=== PATIENT | male | born 1965 | race Caucasian/White ===

== ENCOUNTER 2022-04-27 07:19 | Outpatient (CLI) | payer OTHER, SELFPAY ==
--- NOTE | 2022-04-27 07:15 | TELERAD_ITS ---
[facility] [address] [facility] [address] Phone:?[phone] Fax:?[phone] Referring Physician Information: Sundeep Munoz M.D. [address] [facility] [address] Phone:?[phone] Fax:?[phone] Patient:?Parish Renee D.O.B:?1965 Sex:?Male Phone:?[phone] [facility] MRN:?[id number] Exam Date:?04/27/2022 ? EXAM: MR LUMBAR SPINE WITHOUT CONTRAST 1.5T CLINICAL INFORMATION: Lumbar radiculopathy for 2 months. TECHNICAL INFORMATION: T1, T2 and STIR sagittal sections through the lumbar spine with T1 and T2 FSE stacked axial and angled axial sections. COMPARISON IMAGES: No comparisons. INTERPRETATION:?Segmentation and Alignment: Lordotic alignment of five lumbar- type vertebrae. Sacrum and Sacroiliac joints:?Mild hypertrophic changes are seen on the anterior margins of the superior sacroiliac joints with bridging bone on the left. L5-S1: Normal intervertebral disc and facet joints. No stenosis or impingement. L4-5: Moderate disc degeneration with dorsal bulging and mild narrowing of the subarticular recesses. Mild right facet arthrosis. Neural foramina patent. L3-4: Moderate disc degeneration with a moderate-sized 6-7 mm caudally extruded left posterolateral disc herniation narrowing the subarticular recess and impinging on the traversing left L4 nerve root seen best on T1 axial images 29 & 30 and T2 sagittal image 11. Normal facet joints and patent neural foramina. L2-3: Moderate disc degeneration with a high signal intensity right lateral annular fissure/bulge, mild right facet arthropathy and no stenosis or impingement. L1-2 and T12-L1: Normal intervertebral disc and facet joints. No stenosis or impingement. Conus: The tip of the conus medullaris is visualized at T12. No intradural mass and no arachnoidal adhesions. Osseous and paraspinous structures: Sagittal STIR images show a small benign intraosseous hemangioma within the posterior elements on the left at L5. No fracture or avulsion. No destructive bone lesion and no paraspinous mass. CONCLUSION: 1. Moderate-sized 6-7 mm caudally extruded left posterolateral disc herniation at L3-4 with left L4 neural impingement. 2. L4-5, L3-4 and L2-3 disc degeneration. 3. No intradural abnormality, and no neoplasm, fracture or infection. Electronically signed on 04/27/2022 1:46:00 PM by Jean Claude Rodríguez M.D.
== END 2022-04-27 07:20 | disposition home or self-care (01) ==
LOC: MRI 07:22
PROVIDERS: PCP Family Medicine; Visit Provider Family Medicine
DX: M54.16 Radiculopathy, lumbar region (principal); M51.26 Other intervertebral disc displacement, lumbar region; M51.36 Other intervertebral disc degeneration, lumbar region
CPT/HCPCS: 72148

== ENCOUNTER 2023-10-08 12:24 | Outpatient (CLI) | payer OTHER, SELFPAY | END 2023-10-08 12:25 | disposition home or self-care (01) | PROVIDERS: PCP Family Medicine; Visit Provider Family Medicine | DX: Z01.818 Encounter for other preprocedural examination (principal); E78.2 Mixed hyperlipidemia; Z12.5 Encounter for screening for malignant neoplasm of prostate | CPT/HCPCS: 80048; 80061; 84153; 85025 ==

== ENCOUNTER 2023-10-15 10:30 | Outpatient (CLI) | payer OTHER, SELFPAY ==
--- NOTE | 2023-10-15 11:24 | W.ANESCHARGE ---
Anesthesia Charges Start Date/Time Anesthesia Start Date: 10/15/23 Anesthesia Start Time: 10:54 Stop Date/Time Anesthesia Stop Date: 10/15/23 Anesthesia Stop Time: 11:20
== END 2023-10-15 10:31 | disposition home or self-care (01) ==
LOC: OP CLINIC 10:31
PROVIDERS: PCP Family Medicine; Visit Provider Internal Medicine
DX: Z12.11 Encounter for screening for malignant neoplasm of colon (principal); K63.5 Polyp of colon; K57.30 Diverticulosis of large intestine without perforation or abscess without bleeding
CPT/HCPCS: 00811; 45380; 88305; J2704

== ENCOUNTER 2025-01-12 13:38 | Outpatient (CLI) | payer OTHER, SELFPAY ==
--- NOTE | 2025-01-12 13:45 | CRLHL7_ITS ---
For Patients: As a result of the Century Cures Act, medical imaging exams and procedure reports are released immediately into your electronic medical record. You may view this report before your referring provider. If you have questions, please contact your health care provider. EXAM: MRI OF THE LEFT SHOULDER, WITHOUT CONTRAST CLINICAL INDICATION: Shoulder pain. PRIOR SURGERY: None reported. COMPARISON PLAIN FILMS: 17 November 2024. COMPARISON CROSS-SECTIONAL IMAGING STUDIES: None available at time of interpretation. TECHNICAL: Axial, sagittal oblique and coronal oblique T1, PD, PD FS and T2-weighted images. FINDINGS: GLENOHUMERAL JOINT: Effusion/Cyst: Moderately large effusion. Some strandy synovitis. No erosion. No paralabral or periarticular cyst or ganglion. Humeral Head Articular Cartilage: Diffuse high-grade 2 to grade 3 thinning. No secondary degenerative finding. Glenoid Articular Cartilage: Mildly heterogeneous signal and shallow grade 2 thinning. No secondary degenerative finding. Loose Bodies: No appreciable loose bodies. Capsule: No convincing evidence of adhesive capsulitis or capsular injury. OSSEOUS STRUCTURES: No fracture, marrow edema or marrow replacement process. CORACOACROMIAL ARCH: Acromial Morphology: Gracile acromion from prior acromioplasty. No abnormal lateral or anterior downward sloping of the acromion. No os acromiale. No significant subacromial spur. Acromiohumeral Interval: The acromiohumeral interval is adequately patent. At its narrowest, the interval measures 8 mm. No abnormal thickening of the coracoacromial ligament. Coracohumeral Interval: The coracohumeral interval is normal. At its narrowest, the coracohumeral interval measures greater than 10 mm. Coracoid index is 17 19 mm. ACROMIOCLAVICULAR JOINT REGION: AC Joint: Widened from surgical decompression. Ligaments: The coracoclavicular ligaments are intact. BURSAE: Subacromial-Subdeltoid: No abnormal bursal edema, thickening or bursal fluid. Subcoracoid: No abnormal bursal edema, thickening or bursal fluid. ROTATOR CUFF TENDONS AND MUSCLES AND DELTOID: Supraspinatus: Intermediate signal distal tendon and foot plate with some shallow articular fraying no high-grade tear. No atrophy or edema in the muscle. Infraspinatus: Hazy intermediate signal tendinosis mildly expands distal tendon. Shallow articular 5 millimeter tear at the anterior distal tendon just short of the footplate. No atrophy or edema in the muscle. Teres Minor: Intact tendon. Moderate fatty atrophy of the muscle. Subscapularis: Partial tearing of the superior insertion and prominent tendinosis degrades the distal tendon. No muscle atrophy or edema. Deltoid: No muscle atrophy or edema. BICEPS TENDON, LONG HEAD: The long head of the biceps tendon is appropriately positioned within the bicipital groove without tendon subluxation or dislocation. The biceps lesa mechanism is intact. The biceps anchor appears grossly intact. There is no significant tendinosis or tendon tearing. Fluid and synovitis in the moderately distended tendon sheath. GLENOID LABRUM: Indistinct blunted superior labrum with some patchy mucoid change and degenerative tearing. Posterior and inferior labrum are normal. Volume loss and marginal tearing blunts the anterior labrum without displacement. OTHER FINDINGS: There is no abnormality within the suprascapular or spinoglenoid notches nor within the quadrilateral space. No axillary adenopathy or mass. IMPRESSION: 1. Moderately prominent biceps tenosynovitis. 2. Nonspecific moderately large glenohumeral effusion with some mild reactive synovitis. 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 3. Tendinosis subscapularis. Shallow articular tearing at the insertion. 4. Moderate tendinosis and shallow marginal fraying supraspinatus. 5. Mild tendinosis infraspinatus. Short low-grade articular tear anterior distal tendon. 6. Prior acromioplasty and acromial decompression. Dictated by Ralph Riley MD @ 01/13/2025 10:55:50 AM (Electronically Signed)
== END 2025-01-12 13:39 | disposition home or self-care (01) ==
LOC: MRI 13:39
PROVIDERS: PCP Family Medicine; Visit Provider Family Medicine
DX: M25.512 Pain in left shoulder (principal); M75.22 Bicipital tendinitis, left shoulder; M25.412 Effusion, left shoulder; S46.812A Strain of other muscles, fascia and tendons at shoulder and upper arm level, left arm, initial encounter; M75.82 Other shoulder lesions, left shoulder
CPT/HCPCS: 73221

== ENCOUNTER 2025-07-30 09:32 | Outpatient (CLI) | payer OTHER, SELFPAY | END 2025-07-30 09:33 | disposition home or self-care (01) | PROVIDERS: PCP Family Medicine; Visit Provider Family Medicine | DX: Z01.818 Encounter for other preprocedural examination (principal); Z13.9 Encounter for screening, unspecified | CPT/HCPCS: 80048; 85025; G0103 ==